=== PATIENT | male | born 1965 | race Hispanic/Latino ===

== ENCOUNTER 2018-06-02 07:59 | Inpatient (IN) | payer OTHER ==
[2018-06-02 08:04] VITALS: BMI 29.0
[2018-06-02 09:15] VITALS: O2SAT 99
[2018-06-02] MEDS ORDERED: Alum-Mag Hydrox-Simethicone Susp (30 mL) PO PRN (10:22)
[2018-06-02] MEDS ORDERED: Magnesium Hydroxide Susp 30 ml UD PO PRN (10:22)
[2018-06-02] MEDS ORDERED: Haloperidol Lactate 2 mg/ml Liquid PO PRN (10:27)
--- NOTE | 2018-06-02 12:36 | ED PDOC ---
Arrival/HPI - General Chief Complaint: Psychiatric Evaluation Time Seen by Provider: 06/02/18 08:06 Historian: EMS - History of Present Illness Narrative History of Present Illness (Text): 06/02/18 12:34 A 53 year old male, whose past medical history includes depression, brought to the emergency department for psychiatric admission. Per EMS, patient is transferred from [facility] to [facility] for psychiatric admission for jacklyn michele. Patient was previously medically cleared. Patient denies any complaints at this time. Past Medical History - Provider Review Nursing Documentation Reviewed: Yes - Infectious Disease Hx of Infectious Diseases: None - Cardiac Hx Cardiac Disorders: No - Hematological/Oncological Hx Hepatitis C: Yes - Genitourinary/Gynecological Hx Sexually Transmitted Diseases: Yes - Psychiatric Hx Anxiety: Yes Hx Bipolar Disorder: Yes Hx Substance Use: Yes - Anesthesia Hx Anesthesia Reactions: No Family/Social History - Physician Review Nursing Documentation Reviewed: Yes Family/Social History: No Known Family HX Smoking Status: Current Some Days Smoker Hx Alcohol Use: Yes Frequency of alcohol use: Socially Hx Substance Use: Yes Substance used: heroin Allergies/Home Meds Allergies/Adverse Reactions: Allergies FISH Allergy (Verified 06/02/18 10:19) RASH Home Medications: Home Meds Medication Instructions Recorded Confirmed Gabapentin [Neurontin] 400 mg PO TID 06/02/18 06/02/18 QUEtiapine [SEROquel] 200 mg PO HS 06/02/18 06/02/18 Review of Systems - Physician Review All systems were reviewed & negative as marked: Yes - Review of Systems Constitutional: absent: Fevers, Night Sweats Respiratory: absent: SOB, Cough Cardiovascular: absent: Chest Pain Gastrointestinal: absent: Abdominal Pain, Diarrhea, Nausea, Vomiting Neurological: absent: Headache, Dizziness Physical Exam Vital Signs Reviewed: Yes Vital Signs Temp Pulse Resp BP Pulse Ox 06/02/18 09:14 98 F 66 18 101/44 L 99 06/02/18 08:06 97.3 F L 66 18 110/63 100 Temperature: Afebrile Blood Pressure: Normal Pulse: Regular Respiratory Rate: Normal Appearance: Positive for: Well-Appearing, Non-Toxic, Comfortable Pain Distress: None Mental Status: Positive for: Alert and Oriented X 3 - Systems Exam Head: Present: Atraumatic, Normocephalic Pupils: Present: PERRL Extroacular Muscles: Present: EOMI Conjunctiva: Present: Normal Mouth: Present: Moist Mucous Membranes Neck: Present: Normal Range of Motion Respiratory/Chest: Present: Clear to Auscultation, Good Air Exchange. No: Respiratory Distress, Accessory Muscle Use Cardiovascular: Present: Regular Rate and Rhythm, Normal S1, S2. No: Murmurs Abdomen: No: Tenderness, Distention, Peritoneal Signs Back: Present: Normal Inspection Upper Extremity: Present: Normal Inspection. No: Cyanosis, Edema Lower Extremity: Present: Normal Inspection. No: Edema Neurological: Present: GCS=15, CN II-XII Intact, Speech Normal Skin: Present: Warm, Dry, Normal Color. No: Rashes Psychiatric: Present: Alert, Oriented x 3, Normal Insight, Normal Concentration Medical Decision Making ED Course and Treatment: 06/02/18 12:36 Impression: 53 year old male here for psychiatric admission for depression. No acute findings on physical examination. Plan: -- Reassess and disposition Progress Notes: - Medication Orders Current Medication Orders: Acetaminophen (Tylenol 325mg Tab) 650 mg PO Q6H PRN PRN Reason: Pain, moderate (4-7) Al Hydrox/Mg Hydrox/Simethicone (Maalox Plus 30 Ml) 30 ml PO DAILY PRN PRN Reason: Indigestion / Heartburn Citalopram Hydrobromide (Celexa) 10 mg PO DAILY LORI Clonidine HCl (Catapres) 0.1 mg PO Q12 PRN PRN Reason: withdrawal Haloperidol Lactate (Haldol) 5 mg PO Q6 PRN; Protocol PRN Reason: Agitation Haloperidol Lactate (Haldol) 5 mg IM Q6 PRN; Protocol PRN Reason: Agitation Lorazepam (Ativan) 2 mg PO Q6 PRN; Protocol PRN Reason: Agitation Lorazepam (Ativan) 2 mg IM Q6 PRN; Protocol PRN Reason: Agitation Magnesium Hydroxide (Milk Of Magnesia) 30 ml PO DAILY PRN PRN Reason: Constipation Zaleplon (Sonata) 10 mg PO HS PRN PRN Reason: Insomnia - Scribe Statement The provider has reviewed the documentation as recorded by the Tawanna Zhu Provider Scribe Attestation: All medical record entries made by the Scribe were at my direction and personally dictated by me. I have reviewed the chart and agree that the record accurately reflects my personal performance of the history, physical exam, medical decision making, and the department course for this patient. I have also personally directed, reviewed, and agree with the discharge instructions and disposition. Disposition/Present on Arrival - Present on Arrival Any Indicators Present on Arrival: No History of DVT/PE: No History of Uncontrolled Diabetes: No Urinary Catheter: No History of Decub. Ulcer: No History Surgical Site Infection Following: None - Disposition Have Diagnosis and Disposition been Completed?: Yes Diagnosis: Depression, Opiate dependence Disposition: HOSPITALIZED Disposition Time: 08:10 Condition: STABLE
--- NOTE | 2018-06-02 13:50 | PCM.BM ---
<Piedad Riggs - Last Filed: 06/02/18 13:48> Treatment Plan Problems - Problems identified on initial assessmt Ineffective Coping Date Initiated: 06/02/18 Time Initiated: 13:48 Assessment reference: NA Status: Active Priority: 1 Hopelessness/Helplessness Date Initiated: 06/02/18 Time Initiated: 13:48 Assessment reference: NA Status: Active Priority: 2 Altered Sleep Patterns Date Initiated: 06/02/18 Time Initiated: 13:48 Assessment reference: NA Status: Active Priority: 3 Treatment assets and liabiliti Patient Assests: cooperative, insightful, motivated, ADL independent, physically healthy, cognitively intact, good interpersonal skills Patient Liabilities: financial problems, substance abuse, legal issue - Milieu Protocol Maintain good personal hygiene: daily Encourage regular showers, daily Remind patient to perform daily oral care, daily Assist patient to perform ADL's Conduct patient checks and document Observation sheet: Q15 minutes Maintain personal safety: daily Educate patient to report safety concerns to staff, daily Monitor environment for contraband/sharps Medication safety: Monitor for expected outcome, potential side effects: daily, Assess barriers to learning: daily, Assess readiness for medication education: daily Discharge/Continuing Care - Education Needs Education Needs: Family Medication, Family Diagnosis/Disease Process, Family Coping Skills, Family Anger Management skills, Family Placement options, Family Community resources, Family Activities of Daily Living, Family Pain, Family Nutrition, Family Health Practices/Safety, Family Personal Hygiene/Grooming, Family Aftercare Safety Plan - Discharge Discharge Criteria: Tolerates medication w/o severe side effects, Free of Suicidal thoughts, Free of paranoid thoughts, Free of agitation, Normal sleep pattern, Ability to care for self, No longer exhibiting s/s of withdrawal, Reduction of target symptoms <Ivette Grande - Last Filed: 06/03/18 12:39> - Diagnosis (1) Depression Status: Acute Interventions: 06/03/18 12:38 Psychoeducation Psychopharmacology/adjustment of medications as needed/ monitoring possible side effects Evaluate pt on daily basis Compliance with medications and follow up appointments Suicide and homicide risk assessment and prevention Relapse prevention Reduction of symptoms Improve functional status Family involvement As outpatient: cognitive behavioral therapy (2) Opiate dependence Status: Acute Interventions: 06/03/18 12:39 Monitoring withdrawal symptoms Medical detoxification Pharmacotherapy for alcohol/benzos/opioid dependence Maintaining sobriety Relapse prevention Possible rehabilitation Motivational interviewing 12-step programs: AA meetings
[2018-06-03 07:18] VITALS: RESP 20
[2018-06-03 08:06] LABS: GLUCOSE,FASTING 119 mg/dL (65-110); HDL CHOLESTEROL 35 mg/dL (29-60)
[2018-06-03 08:14] LABS: FREE T4 1.14 ng/dL (0.78-2.19)
[2018-06-03 08:17] LABS: LDL CHOLESTEROL 90 mg/dL (0-129)
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
[2018-06-03] MEDS: Mupirocin 2% Ointment 15 GM TUBE TOP SCH (17:52)
[2018-06-04 07:09] VITALS: BP 162/89; PULSE 55; TEMP 98.2
[2018-06-04] MEDS: Mupirocin 2% Ointment 15 GM TUBE TOP SCH (09:52)
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
== END 2018-06-04 13:28 | disposition left against medical advice (07) | DRG 430 ==
LOC: ED 07:59 → ERH 08:10 → PSYC 09:25
PROVIDERS: ADMIT Psychiatry & Neurology Psychiatry; ATTEND Psychiatry & Neurology Psychiatry
DX: F31.9 Bipolar disorder, unspecified (principal); F11.20 Opioid dependence, uncomplicated; F17.210 Nicotine dependence, cigarettes, uncomplicated; Z91.14 Patient's other noncompliance with medication regimen